=== PATIENT | female | born 1975 | race American Indian/Alaskan Native ===

== ENCOUNTER 2020-08-16 09:01 | Emergency (ER) | payer SELFPAY ==
--- NOTE | 2020-08-16 09:17 | Event Note ---
Date: 08/16/20 Medical screening examination: 44-year-old female presenting to the hospital with emergency medical services, with a complaint of painless anxiety. She is not homicidal or suicidal. On review of systems, endorses loss of smell/taste, and chills. Clinically sober, GCS of 15. Protecting airway, moving 4 extremities. Placed on isolation, obtain x-ray of the chest, basic laboratory studies, reassess. At this point time, does not meet criteria for 1013.
[2020-08-16 09:52] LABS: Hematocrit 43.4 % (30.3-42.9); Hemoglobin 15.2 gm/dl (10.1-14.3); Mean Corpuscular HGB Conc 35 % (30-34); Mean Corpuscular Volume 75 fl (79-97); Platelet Count 199 K/mm3 (140-440); Red Blood Count 5.76 M/mm3 (3.65-5.03); Red Cell Distribution Width 16.2 % (13.2-15.2)
[2020-08-16 10:04] LABS: INR 1.04 (0.87-1.13)
[2020-08-16 10:09] LABS: BUN/Creatinine Ratio 12; Blood Urea Nitrogen 11 mg/dL (7-17); Calcium 9.6 mg/dL (8.4-10.2); Hemolysis Index 4
[2020-08-16] MEDS ORDERED: LORazepam 1 MG TAB PO ONE (10:17)
--- NOTE | 2020-08-16 10:27 | Emergency Department Report ---
ED General Adult HPI - General Chief complaint: Anxiety Stated complaint: ANXIETY,HTN Time Seen by Provider: 08/16/20 10:04 Source: patient, EMS Mode of arrival: Stretcher Limitations: No Limitations - History of Present Illness Initial comments: Patient is a 44-year-old F [place] female with a history of anxiety who is presenting with upper respiratory symptoms of sinus pain and congestion. Patient states approximately 5 days ago she began having chills as well as mid face shoulder pain. States she has some discharge from the nose which was yell ow. Patient has a mild cough which is nonproductive. Patient is complaining of body aches as well. She denies nausea vomiting diarrhea. She has decreased sense of taste and smell. Patient has an appointment to get a coronavirus test today at 1230 but she was actually having anxiety type symptoms which prompted her to come to the emergency department. Patient is starting a new medication in approximately 5days but has not arrived at home yet. Patient states she was short of breath and thinking that her lungs had worsened due to possible coronavirus infection. Patient was having palpitations as well. - Related Data Home Medications Medication Instructions Recorded Confirmed Last Taken Valsartan/Hydrochlorothiazide 1 tab PO QDAY 12/27/15 12/27/15 12/26/15 08:00 [Diovan Hct 80-12.5 mg] Previous Rx's Medication Instructions Recorded Last Taken Type ALPRAZolam [Xanax TAB] 0.25 mg PO BID PRN #10 tab 08/16/20 Unknown Rx Azithromycin [Zithromax Z-SAVANA] 250 mg PO DAILY #6 tablet 08/16/20 Unknown Rx Fluticasone [Flonase] 1 spray NS QDAY #1 bottle 08/16/20 Unknown Rx predniSONE [Deltasone] 20 mg PO QDAY #5 tab 08/16/20 Unknown Rx Allergies Allergy/AdvReac Type Severity Reaction Status Date / Time Penicillins Allergy Unknown Verified 07/31/20 12:14 ED Review of Systems ROS: Stated complaint: ANXIETY,HTN Other details as noted in HPI Comment: All other systems reviewed and negative ED Past Medical Hx - Past Medical History Hx Hypertension: Yes Additional medical history: anemia/THALASSEMIA - Surgical History Hx Cholecystectomy: Yes Additional Surgical History: tubal ligation. partial hysterectomy - Social History Smoking Status: Never Smoker Substance Use Type: Alcohol, Marijuana - Medications Home Medications: Home Medications Medication Instructions Recorded Confirmed Last Taken Type Valsartan/Hydrochlorothiazide 1 tab PO QDAY 12/27/15 12/27/15 12/26/15 08:00 History [Diovan Hct 80-12.5 mg] ALPRAZolam [Xanax TAB] 0.25 mg PO BID PRN #10 tab 08/16/20 Unknown Rx Azithromycin [Zithromax Z-SAVANA] 250 mg PO DAILY #6 tablet 08/16/20 Unknown Rx Fluticasone [Flonase] 1 spray NS QDAY #1 bottle 08/16/20 Unknown Rx predniSONE [Deltasone] 20 mg PO QDAY #5 tab 08/16/20 Unknown Rx ED Physical Exam - General Limitations: No Limitations General appearance: alert, anxious - Head Head exam: Present: atraumatic, normocephalic - Eye Eye exam: Present: normal appearance, PERRL, EOMI - ENT ENT exam: Present: mucous membranes moist - Neck Neck exam: Present: normal inspection - Respiratory Respiratory exam: Present: normal lung sounds bilaterally. Absent: respiratory distress, wheezes, rales, rhonchi, stridor, chest wall tenderness, accessory muscle use, decreased breath sounds, prolonged expiratory - Cardiovascular Cardiovascular Exam: Present: regular rate, normal rhythm. Absent: systolic murmur, diastolic murmur, rubs, gallop - GI/Abdominal GI/Abdominal exam: Present: soft, normal bowel sounds. Absent: distended, tenderness, guarding, rebound - Extremities Exam Extremities exam: Present: normal inspection - Back Exam Back exam: Present: normal inspection - Neurological Exam Neurological exam: Present: alert, oriented X3 - Psychiatric Psychiatric exam: Present: normal affect, normal mood - Skin Skin exam: Present: warm, dry, intact, normal color. Absent: rash ED Course Vital Signs 08/16/20 08/16/20 08/16/20 09:30 09:36 09:45 Temperature 98.0 F Pulse Rate 100 H 101 H Respiratory 20 22 Rate Blood Pressure 135/85 135/85 O2 Sat by Pulse 99 99 Oximetry 08/16/20 08/16/20 10:15 10:45 Temperature Pulse Rate 82 66 Respiratory 21 20 Rate Blood Pressure 150/86 130/70 O2 Sat by Pulse 98 96 Oximetry ED Medical Decision Making - Lab Data Result diagrams: 08/16/20 09:33 08/16/20 09:33 - EKG Data -: EKG Interpreted by Me EKG shows normal: sinus rhythm, axis, intervals, QRS complexes, ST-T waves Rate: normal - EKG Data Interpretation: normal EKG - Radiology Data CHEST 1 VIEW 1016 INDICATION / CLINICAL INFORMATION: chills, loss of taste, loss of smell COMPARISON: None available. FINDINGS: SUPPORT DEVICES: None HEART / MEDIASTINUM: No significant abnormality. LUNGS / PLEURA: No significant pulmonary or pleural abnormality. No pneumothorax. ADDITIONAL FINDINGS: No significant additional findings. IMPRESSION: No significant acute abnormality Signer Name: Juve Montero MD Signed: 08/16/2020 11:15 AM Workstation Name: [id number] - Medical Decision Making Patient is a 44-year-old F [place] female who is presenting with some sinus tenderness and mild cough. Patient has decreased sense of taste and smell. Patient is been taken some Bactrim which was given to her by family member who is a physician. This is not adequate coverage for sinusitis. To be switched to azithromycin since the patient is pen allergic. Patient also given Flonase. Patient is having some anxiety type symptoms as well because of worry about having coronavirus. Lungs are clear to auscultation is she is 100% on room air and chest x-ray is within normal limits. She is been given reassurance. Also given medication to help with anxiety type symptoms. Patient stable for discharge. Critical care attestation.: If time is entered above; I have spent that time in minutes in the direct care of this critically ill patient, excluding procedure time. ED Disposition Clinical Impression: Suspected COVID-19 virus infection, Anxiety reaction Sinusitis Qualifiers: Sinusitis location: sphenoidal Chronicity: acute Recurrence: non-recurrent Qualified Code(s): J01.30 - Acute sphenoidal sinusitis, unspecified Disposition: DC- TO HOME OR SELFCARE Is pt being admited?: No Does the pt Need Aspirin: No Condition: Stable Instructions: Sinusitis (ED), COVID-19, Generalized Anxiety Disorder (ED) Referrals: PRIMARY CARE, [Primary Care Provider] - 3-5 Days Time of Disposition: 11:30
[2020-08-16 11:00] VITALS: BP 130/70
--- NOTE | 2020-08-16 11:19 | XRay Report ---
CHEST 1 VIEW 1016 INDICATION / CLINICAL INFORMATION: chills, loss of taste, loss of smell COMPARISON: None available. FINDINGS: SUPPORT DEVICES: None HEART / MEDIASTINUM: No significant abnormality. LUNGS / PLEURA: No significant pulmonary or pleural abnormality. No pneumothorax. ADDITIONAL FINDINGS: No significant additional findings. IMPRESSION: No significant acute abnormality Signer Name: Juve Montero MD Signed: 08/16/2020 11:15 AM Workstation Name: [id number]
[2020-08-16 14:14] LABS: Anisocytosis Few; Band Neutrophils # (Manual) 0.1 K/mm3; Eosinophils % (Manual) 0 % (0.0-4.3); Platelet Estimate Consistent w Auto; Target Cells Rare; Total Cells Counted 100
== END 2020-08-16 11:50 | disposition home or self-care (01) ==
LOC: ED 09:01
DX: F41.9 Anxiety disorder, unspecified (principal); J32.9 Chronic sinusitis, unspecified; I10 Essential (primary) hypertension; F12.10 Cannabis abuse, uncomplicated; Z90.49 Acquired absence of other specified parts of digestive tract; Z20.828 Contact with and (suspected) exposure to other viral communicable diseases; Z90.710 Acquired absence of both cervix and uterus; Z79.899 Other long term (current) drug therapy; Z88.0 Allergy status to penicillin
CPT/HCPCS: 71045; 80048; 80320; 82550; 83735; 84443; 84702; 85025; 85610; 93005; G0480